=== PATIENT | female | born 1985 | race Caucasian/White ===

== ENCOUNTER 2020-06-11 08:00 | Outpatient (CLI) | payer OTHER | END 2020-06-11 23:59 | disposition home or self-care (01) | LOC: LAB.N 08:00 | PROVIDERS: ATTEND Family Medicine | DX: R39.9 Unspecified symptoms and signs involving the genitourinary system (principal) | CPT/HCPCS: 87086; 87181 ==

== ENCOUNTER 2021-12-27 08:00 | Outpatient (CLI) | payer OTHER ==
[2021-12-27 17:59] LABS: BILIRUBIN,URINE NEGATIVE (NEGATIVE); CLARITY,URINE CLEAR (CLEAR); GLUCOSE, URINE (UA) NEGATIVE (NEGATIVE); KETONES,URINE (UA) NEGATIVE (NEGATIVE); LEUKOCYTE ESTERASE, URINE MODERATE (NEGATIVE); NITRITE,URINE NEGATIVE (NEGATIVE); OCCULT BLOOD,URINE TRACE-INTA (NEGATIVE); PH,URINE 7.5 PH (5.0-7.5); PROTEIN,URINE NEGATIVE (NEGATIVE); UROBILINOGEN,URINE 0.2 (NORMAL) E.U./dL (NORMAL)
[2021-12-27 18:20] LABS: RBC,URINE 0-5 /HPF (0-5)
[2021-12-27 18:21] LABS: BACTERIA,URINE Few /HPF (None Seen); SQUAMOUS EPITHELIAL CELL,UR RARE Squamous (<= Few)
== END 2021-12-27 23:59 | disposition home or self-care (01) ==
LOC: LAB.N 08:00
PROVIDERS: ATTEND Emergency Medicine
DX: R30.0 Dysuria (principal)
CPT/HCPCS: 81001; 87086; 87181

== ENCOUNTER 2022-05-11 08:00 | Outpatient (CLI) | payer OTHER ==
[2022-05-12 12:25] LABS: BILIRUBIN,URINE NEGATIVE (NEGATIVE); GLUCOSE, URINE (UA) NEGATIVE (NEGATIVE); KETONES,URINE (UA) NEGATIVE (NEGATIVE); LEUKOCYTE ESTERASE, URINE TRACE (NEGATIVE); NITRITE,URINE NEGATIVE (NEGATIVE); OCCULT BLOOD,URINE NEGATIVE (NEGATIVE); PROTEIN,URINE NEGATIVE (NEGATIVE); UROBILINOGEN,URINE 0.2 (NORMAL) E.U./dL (NORMAL)
[2022-05-12 12:33] LABS: BACTERIA,URINE Rare /HPF (None Seen); RBC,URINE 0-5 /HPF (0-5); SQUAMOUS EPITHELIAL CELL,UR RARE Squamous (<= Few); WBC,URINE 0-3 /HPF (0-5)
[2022-05-12 12:34] LABS: AMORPHOUS SEDIMENT,UR Marked /LPF
[2022-05-12 12:35] LABS: CLARITY,URINE CLEAR (CLEAR)
== END 2022-05-11 23:59 | disposition home or self-care (01) ==
LOC: LAB.WC 08:00
PROVIDERS: ATTEND Nurse Practitioner
DX: Z34.90 Encounter for supervision of normal pregnancy, unspecified, unspecified trimester (principal)
CPT/HCPCS: 81001; 87086

== ENCOUNTER 2022-05-19 11:18 | Outpatient (CLI) | payer OTHER ==
[2022-05-19 11:51] LABS: BASOPHILS % (AUTO) 0.4 %; EOSINOPHILS # (AUTO) 0.1 10^3/uL (0.0-0.7); EOSINOPHILS % (AUTO) 0.7 %; HCT - HEMATOCRIT 37.2 % (37.0-47.0); HGB - HEMOGLOBIN 12.8 g/dL (12.0-16.0); LYMPHOCYTES # (AUTO) 1.1 10^3/uL (1.5-3.5); LYMPHOCYTES % (AUTO) 16.4 %; MEAN CORPUSCULAR HEMOGLOBIN 31.6 pg (27.0-31.0); MEAN CORPUSCULAR HGB CONC 34.4 g/dL (32.0-36.0); MEAN CORPUSCULAR VOLUME 91.9 fL (81.0-99.0); MEAN PLATELET VOLUME 8.8 fL (7.9-10.8); MONOCYTES # (AUTO) 0.5 10^3/uL (0.0-1.0); MONOCYTES % (AUTO) 7.8 %; NEUTROPHILS # (AUTO) 5.1 10^3/uL (1.5-6.6); NEUTROPHILS % (AUTO) 74.4 %; PLT - PLATELET COUNT 261 10^3/uL (130-450); RED BLOOD COUNT 4.05 10^6/uL (4.20-5.40); RED CELL DISTRIBUTION WIDTH 12.3 % (12.0-15.0); WHITE BLOOD COUNT 6.8 x10^3/uL (4.8-10.8)
[2022-05-21 05:08] LABS: HCV AB Non Reactive (Non Reactive)
[2022-05-21 06:08] LABS: RPR Non Reactive (Non Reactive)
[2022-05-21 10:07] LABS: VARICELLA-ZOSTER AB IGG 3133 index (Immune >165)
[2022-05-22 02:06] LABS: HIV SCREEN 4TH GENERATION Non Reactive (Non Reactive)
[2022-05-22 08:09] LABS: HBsAG SCREEN Negative (Negative)
== END 2022-05-19 11:19 | disposition home or self-care (01) ==
LOC: LAB 11:18
PROVIDERS: ATTEND Nurse Practitioner
DX: Z34.90 Encounter for supervision of normal pregnancy, unspecified, unspecified trimester (principal); Z36.89 Encounter for other specified antenatal screening
CPT/HCPCS: 36415; 85025; 86592; 86762; 86787; 86803; 86850; 86900; 86901; 87340; 87389

== ENCOUNTER 2022-05-29 12:32 | Outpatient (CLI) | payer OTHER ==
--- NOTE | 2022-05-29 15:00 | Ultrasound Report ---
PROCEDURE: OB First Trimester w/TV INDICATIONS: POSITIVE TEST OUTSIDE/PRIOR DATING DATA: Last menstrual period (LMP): 02/23/2022. LMP-based estimated date of delivery (OTIS): 11/30/2022. First dating scan (date and location): Today's exam. Estimated date of delivery (OTIS) from first dating scan: 11/24/2022. The below data below was generated using the sonographic OTIS of 11/24/2022 TECHNIQUE: Real-time scanning was performed of the fetus, with image documentation and biometric measurements. Endovaginal scanning: Not performed COMPARISON: None. FINDINGS: General: A single living intrauterine gestation is present. Presentation: Variable Placenta: Too early to evaluate. Amniotic fluid : subjectively normal. heart rate: 158 beats per minute. Maternal cervical canal: 3.0 cm long; normal length is 2.5 cm or more. biometrics: Mean sac diameter: 6.6 cm, 13 weeks 0 days Mentor-rump length: 8.78 cm, 14 weeks 5 days Biparietal diameter: 2.59 cm, 14 weeks 4 days Head circumference: 9.85 cm, 14 weeks 4 days Abdominal circumference: 8.11 cm, 14 weeks 3 days Femur length: 1.27 cm, 13 weeks 5 days Estimated gestational age from initial scan: Not applicable Composite gestational age from present scan: 14 weeks 3 days Estimated weight and percentile: Not applicable Measurement variability in biometric dating: +/- 10 days from 12-20 weeks gestation, +/- 2 weeks from 20-30 weeks gestation, +/- 3 weeks at 30 weeks gestation or more. Other: Not applicable. IMPRESSION: Single living intrauterine at 14 weeks 3 days, OTIS of 11/24/2022. Reviewed by: Juan Marin on 05/29/2022 2:58 PM PDT Approved by: Juan Marin on 05/29/2022 2:58 PM PDT Station ID: [id number]
== END 2022-05-29 12:33 | disposition home or self-care (01) ==
LOC: DI 12:32
PROVIDERS: ATTEND Nurse Practitioner
DX: Z34.92 Encounter for supervision of normal pregnancy, unspecified, second trimester (principal)

== ENCOUNTER 2022-06-09 15:30 | Outpatient (CLI) | payer OTHER ==
[2022-06-09 11:39] LABS: BILIRUBIN,URINE NEGATIVE (NEGATIVE); GLUCOSE, URINE (UA) NEGATIVE (NEGATIVE); KETONES,URINE (UA) NEGATIVE (NEGATIVE); LEUKOCYTE ESTERASE, URINE NEGATIVE (NEGATIVE); NITRITE,URINE NEGATIVE (NEGATIVE); OCCULT BLOOD,URINE NEGATIVE (NEGATIVE); PROTEIN,URINE NEGATIVE (NEGATIVE); UROBILINOGEN,URINE 0.2 (NORMAL) E.U./dL (NORMAL)
[2022-06-09 11:58] LABS: BACTERIA,URINE Rare /HPF (None Seen); CLARITY,URINE CLEAR (CLEAR); RBC,URINE None Seen /HPF (0-5); SQUAMOUS EPITHELIAL CELL,UR RARE Squamous (<= Few); WBC,URINE 0-3 /HPF (0-5)
[2022-06-10 00:13] LABS: CHLAMYDIA TRACHOMATIS DNA NEGATIVE (NEGATIVE); NEISSERIA GONORRHOEAE DNA NEGATIVE (NEGATIVE); TRICHOMONAS VAGINALIS DNA NEGATIVE (NEGATIVE)
== END 2022-06-09 23:59 | disposition home or self-care (01) ==
LOC: LAB.WC 15:30
PROVIDERS: ATTEND Nurse Practitioner
DX: Z32.01 Encounter for pregnancy test, result positive (principal)
CPT/HCPCS: 81001; 87086; 87491; 87591; 87661

== ENCOUNTER 2022-07-21 15:45 | Outpatient (CLI) | payer OTHER ==
--- NOTE | 2022-07-22 13:39 | Ultrasound Report ---
PROCEDURE: OB Detailed Eval INDICATIONS: SUPERVISION OF NORMAL OUTSIDE/PRIOR DATING DATA: Last menstrual period (LMP): 02/23/2022. LMP-based estimated date of delivery (OTIS): 11/30/2022. First dating scan (date and location): 05/29/2022. Estimated date of delivery (OTIS) from first dating scan: 11/24/2022. TECHNIQUE: Real-time scanning was performed of the fetus, with image documentation and biometric measurements. Endovaginal scanning: Not performed COMPARISON: 05/29/2022 FINDINGS: General: A single living intrauterine gestation is present. Presentation: Breech Placenta: Placental position is posterior, without previa. Amniotic fluid index: 15.8 cm, normal for gestational age. heart rate: 16.9 beats per minute. Maternal cervical canal: 2.7 cm long; normal length is 2.5 cm or more. biometrics: Biparietal diameter: 22 weeks 0 days Head circumference: 21 weeks 4 days Abdominal circumference: 22 weeks 4 days Femur length: 21 weeks 1 day gestational age from initial scan: 22 weeks 0 days. Composite gestational age from present scan: 21 weeks 3 days Estimated weight and percentile: 458 g, 37th percentile Measurement variability in biometric dating: +/- 10 days from 12-20 weeks gestation, +/- 2 weeks from 20-30 weeks gestation, +/- 3 weeks at 30 weeks gestation or later. Anatomic survey: Neuro: Ventricles are normal at less than 10 mm. Cisterna magna is normal at 3-11 mm. Cerebellum i s normal in size and morphology. Nuchal skin fold: Normal at less than 6 mm between 14 and 20 weeks gestational age. Face: Nose and lips, facial profile are normal. Spine: Suboptimal visualization. Heart: 4-chambered heart is present, with normal ventricular outflow tracts. Diaphragm: Diaphragm is intact. Stomach: Left-sided stomach is present. Kidneys: No hydronephrosis. Normal is less than 5 mm in 2nd trimester, less than 7 mm in 3rd trimester. Cord: 3 vessel cord has orthotopic insertion. Bladder: Normal in size. Extremities: All 4 extremities are visualized. IMPRESSION: 1. Single living intrauterine . 2. spine is suboptimally visualized due to lie. Attention on follow-up is recommended. 3. Otherwise the visualized anatomy is within normal limits. Reviewed by: Ga Ramirez MD on 07/22/2022 1:38 PM PDT Approved by: Ga Ramirez MD on 07/22/2022 1:38 PM PDT Station ID: [id number]
== END 2022-07-21 15:46 | disposition home or self-care (01) ==
LOC: DI 15:45
PROVIDERS: ATTEND Nurse Practitioner
DX: Z34.92 Encounter for supervision of normal pregnancy, unspecified, second trimester (principal); Z36.89 Encounter for other specified antenatal screening

== ENCOUNTER 2022-08-09 10:40 | Outpatient (CLI) | payer OTHER ==
--- NOTE | 2022-08-09 12:04 | Ultrasound Report ---
PROCEDURE: OB F/U or Repeat INDICATIONS: SUPERVISION OF . Follow-up spine. OUTSIDE/PRIOR DATING DATA: Last menstrual period (LMP): 02/23/2022. LMP-based estimated date of delivery (OTIS): 11/30/2022. First dating scan (date and location): 05/29/2022. Estimated date of delivery (OTIS) from first dating scan: 11/24/2022. The below data below was generated using the ultrasound OTIS of 11/24/2022 TECHNIQUE: Real-time scanning was performed of the fetus, with image documentation and biometric measurements. Endovaginal scanning: Not performed COMPARISON: 07/21/2022 FINDINGS: General: A single living intrauterine gestation is present. Presentation: Cephalic Placenta: Placental position is posterior, without previa. Amniotic fluid index: 19.3 cm, 85th percentile for gestational age. heart rate: 156 beats per minute. Maternal cervical canal: 3.2 cm long; normal length is 2.5 cm or more. biometrics: Estimated gestational age from initial scan: 24 weeks 5 days. Composite gestational age from present scan: Not applicable Estimated weight and percentile: Not applicable Measurement variability in biometric dating: +/- 10 days from 12-20 weeks gestation, +/- 2 weeks from 20-30 weeks gestation, +/- 3 weeks at 30 weeks gestation or more. Other: spine appears within normal limits. IMPRESSION: Single living intrauterine at 24 weeks 5 days, OTIS of 11/24/2022. spine appears within normal limits. Reviewed by: Juan Marin on 08/09/2022 12:03 PM PDT Approved by: Juan Marin on 08/09/2022 12:03 PM PDT Station ID: [id number]
== END 2022-08-09 10:41 | disposition home or self-care (01) ==
LOC: DI 10:40
PROVIDERS: ATTEND Nurse Practitioner
DX: Z34.92 Encounter for supervision of normal pregnancy, unspecified, second trimester (principal)

== ENCOUNTER 2022-08-26 11:23 | Outpatient (CLI) | payer OTHER ==
[2022-08-26 12:43] LABS: HCT - HEMATOCRIT 32.2 % (37.0-47.0); HGB - HEMOGLOBIN 10.1 g/dL (12.0-16.0); MEAN CORPUSCULAR HEMOGLOBIN 29.8 pg (27.0-31.0); MEAN CORPUSCULAR HGB CONC 31.4 g/dL (32.0-36.0); MEAN PLATELET VOLUME 8.8 fL (7.9-10.8); RED BLOOD COUNT 3.39 10^6/uL (4.20-5.40); RED CELL DISTRIBUTION WIDTH 12.2 % (12.0-15.0)
== END 2022-08-26 11:24 | disposition home or self-care (01) ==
LOC: LAB 11:23
PROVIDERS: ATTEND Nurse Practitioner
DX: Z34.90 Encounter for supervision of normal pregnancy, unspecified, unspecified trimester (principal); Z86.2 Personal history of diseases of the blood and blood-forming organs and certain disorders involving the immune mechanism
CPT/HCPCS: 36415; 82728; 82950; 85027

== ENCOUNTER 2022-09-07 15:41 | Outpatient (CLI) | payer OTHER ==
--- NOTE | 2022-09-07 16:56 | Ultrasound Report ---
PROCEDURE: OB F/U or Repeat INDICATIONS: UTERINE SIZE DATE DISCREPENCY OUTSIDE/PRIOR DATING DATA: Last menstrual period (LMP): 02/23/2022. LMP-based estimated date of delivery (OTIS): 11/30/2022. First dating scan (date and location): 05/29/2022. Estimated date of delivery (OTIS) from first dating scan: 11/24/2022. The below data below was generated using the ultrasound OTIS of 11/24/2022 TECHNIQUE: Real-time scanning was performed of the fetus, with image documentation and biometric measurements. Endovaginal scanning: Not performed. COMPARISON: 08/09/2022 FINDINGS: General: A single living intrauterine gestation is present. Presentation: Transverse Placenta: Placental position is posterior, without previa. Amniotic fluid index: 16.9 cm, 60th percentile for gestational age. heart rate: 152 beats per minute. Maternal cervical canal: 3.9 cm long; normal length is 2.5 cm or more. biometrics: Biparietal diameter: 7.1 cm, 20 weeks 2 days Head circumference: 26.7 cm, 29 weeks 1 day Abdominal circumference: 25.6 cm, 29 weeks 5 days Femur length: 5.4 cm, 28 weeks 3 days Estimated gestational age from initial scan: 28 weeks 6 days Composite gestational age from present scan: 28 weeks 6 days Estimated weight and percentile: 1340 g, 47th percentile Measurement variability in biometric dating: +/- 10 days from 12-20 weeks gestation, +/- 2 weeks from 20-30 weeks gestation, +/- 3 weeks at 30 weeks gestation or more. Other: Not applicable. IMPRESSION: Single living intrauterine at 28 weeks 6 days, OTIS of 11/24/2022. Estimated weight of 1340 g, 47th percentile. Reviewed by: Juan Marin on 09/07/2022 4:55 PM PDT Approved by: Juan Marin on 09/07/2022 4:55 PM PDT Station ID: [id number]
== END 2022-09-07 15:42 | disposition home or self-care (01) ==
LOC: DI 15:41
PROVIDERS: ATTEND Nurse Practitioner
DX: O26.842 Uterine size-date discrepancy, second trimester (principal); Z3A.28 28 weeks gestation of pregnancy

== ENCOUNTER 2022-11-10 08:00 | Outpatient (CLI) | payer OTHER | END 2022-11-10 23:59 | disposition home or self-care (01) | LOC: LAB.WC 08:00 | PROVIDERS: ATTEND Nurse Practitioner | DX: Z36.89 Encounter for other specified antenatal screening (principal) | CPT/HCPCS: 87797 ==

== ENCOUNTER 2023-03-12 13:16 | Outpatient (CLI) | payer OTHER ==
--- NOTE | 2023-03-12 14:07 | XRAY Report ---
PROCEDURE: Chest 2V INDICATIONS: ACUTE COUGH TECHNIQUE: 2 views of the chest were acquired. COMPARISON: None. FINDINGS: Surgical changes and devices: None. Lungs and pleura: No pleural effusions or pneumothorax. Lungs are clear. Mediastinum: Mediastinal contours appear normal. Heart size is normal. Bones and chest wall: No suspicious bony lesions. Overlying soft tissues appear unremarkable. IMPRESSION: No acute cardiopulmonary process. Reviewed by: Mark Tejada MD on 03/12/2023 2:05 PM [facility] Approved by: Mark Tejada MD on 03/12/2023 2:05 PM [facility] Station ID: [id number]
== END 2023-03-12 13:17 | disposition home or self-care (01) ==
LOC: DI.N 13:16
PROVIDERS: ATTEND Nurse Practitioner Family
DX: R05.1 Acute cough (principal); R09.89 Other specified symptoms and signs involving the circulatory and respiratory systems